=== PATIENT | male | born 1990 | race African-American/Black ===

== ENCOUNTER 2017-11-22 23:51 | Emergency (ER) | payer SELFPAY ==
[~2017-11-22] VITALS: Ht 172.7 cm; Wt 90.9 kg
[2017-11-23 00:05] VITALS: Ht 172.7 cm; Wt 90.9 kg
[2017-11-23 01:01] VITALS: BP 150/87
== END 2017-11-23 01:03 ==
LOC: D.ER 23:51
DX: S21.212A Laceration without foreign body of left back wall of thorax without penetration into thoracic cavity, initial encounter (principal); X99.1XXA Assault by knife, initial encounter; Y93.89 Activity, other specified; Y92.89 Other specified places as the place of occurrence of the external cause; F17.200 Nicotine dependence, unspecified, uncomplicated

== ENCOUNTER 2017-11-30 22:18 | Emergency (ER) | payer SELFPAY ==
[~2017-11-30] VITALS: Ht 172.7 cm; Wt 90.9 kg
[2017-11-30 22:28] VITALS: Ht 172.7 cm; Wt 90.9 kg
[2017-11-30] MEDS ORDERED: BACTRIM DS TABL1 TAB PO (23:11)
[2017-11-30 23:28] VITALS: BP 125/81
== END 2017-11-30 23:24 | disposition home or self-care (01) ==
LOC: D.ER 22:18
DX: S21.212D Laceration without foreign body of left back wall of thorax without penetration into thoracic cavity, subsequent encounter (principal); X58.XXXD Exposure to other specified factors, subsequent encounter; Z48.02 Encounter for removal of sutures; F17.200 Nicotine dependence, unspecified, uncomplicated